=== PATIENT | male | born 1975 | race Caucasian/White ===

== ENCOUNTER 2019-08-14 15:56 | Emergency (ER) | payer OTHER ==
[~2019-08-14] VITALS: Ht 172.7 cm; Wt 72.6 kg
[2019-08-14 17:45] LABS: ABSOLUTE NEUTROPHILS 2.7 thou/uL (1.4-8.2); BASOPHILS 0.9 % (0.0-2.0); EOSINOPHILS 2.3 % (0.0-3.0); HEMATOCRIT 42.7 % (42.0-52.0); HEMOGLOBIN 14.1 gm/dL (14.0-18.0); LYMPHOCYTES 49.5 % (24.0-44.0); MCH 27.8 pg (26.0-34.0); MCHC 33.1 g/dL (28.0-37.0); MCV 83.9 fL (80.0-100.0); MONOCYTES 5.1 % (1.0-8.0); PLATELET COUNT 280 thou/uL (150-400); POLYS 42.2 % (36.0-66.0); RBC 5.09 mil/uL (4.50-6.00); RDW 14.7 % (10.5-14.5); WBC 6.3 thou/uL (4.0-11.0)
[2019-08-14 17:56] LABS: CALCIUM 8.3 mg/dL (8.5-10.1); POTASSIUM 3.4 mmol/L (3.5-5.1)
[2019-08-14 18:02] LABS: ALBUMIN 3.7 g/dL (3.4-5.0); TOTAL PROTEIN 6.6 g/dL (6.4-8.2)
[2019-08-14 18:35] LABS: URINE BILIRUBIN NEGATIVE (Negative); URINE BLOOD NEGATIVE (Negative); URINE CLARITY CLEAR; URINE COLOR YELLOW; URINE GLUCOSE-RANDOM* NEGATIVE (Negative); URINE KETONES NEGATIVE (Negative); URINE LEUKOCYTES-REFLEX NEGATIVE (Negative); URINE NITRITE-REFLEX NEGATIVE (Negative); URINE PROTEIN (DIPSTICK) NEGATIVE (Negative); URINE UROBILINOGEN 0.2 E.U./dl (0.2-1.0)
[2019-08-14] MEDS ORDERED: PEPCID20 MG PO (19:13)
[2019-08-14 19:38] VITALS: BP 108/73
[2019-08-15] MEDS ORDERED: PROTONIX40 M2 PO (13:01)
[2019-08-15] MEDS ORDERED: CARAFATE1 GM PO (13:01)
[2019-08-15] MEDS ORDERED: ZOFRAN ODT4 MG PO (13:01)
== END 2019-08-14 19:20 | disposition still patient (30) ==
LOC: ER 15:56
PROVIDERS: Emergency Medicine
DX: F10.129 Alcohol abuse with intoxication, unspecified (principal); I10 Essential (primary) hypertension; F17.210 Nicotine dependence, cigarettes, uncomplicated; Z90.49 Acquired absence of other specified parts of digestive tract; Y90.9 Presence of alcohol in blood, level not specified

== ENCOUNTER 2019-08-15 10:03 | Emergency (ER) | payer OTHER ==
[~2019-08-15] VITALS: Ht 172.7 cm; Wt 77.1 kg
--- NOTE | ~2019-08-15 | EMS ---
[place] [address] EMS Patient Care Report Name: TRENT GRAFF Room #: DEP [facility] [place]#: [id number] Admission: 08/15/19 Attend Phys: Discharge: 08/15/19 Date of : 79 Report #: [id number] THIS REPORT FOR: //name// Report Transmitted: 08/16/2019 07:56 EMS Care Summary [place], [place]/[facility] Incident [phone] @ 08/15/2019 09:36 Incident Location [address] [place] [address] Patient TRENT GRAFF Male, 44 Years 1975 Patient Address [address] [place] [address] Patient History Gastric Ulcer,Alcohol Abuse,Appendectomy, Patient Allergies Dairy product allergy,Demerol, Patient Medications Pantoprazole, Oxycodone, Adderall, Lorazepam, Chief Complaint ABD PAIN Disposition Transported No Lights/[place] Reason Abdominal Pain/Problems Transported To [facility] Narrative PT FOUND AMBULATORY. [facility] CANCELLED PRIOR TO THEIR ARRIVAL. PT STATES HIS STOMACH HURTS. PT STATES HE WAS DRINKING YESTERDAY. PT ADMITS TO HX OF GASTRIC ULCER. PT DENIES KNOWING IF HE HAS PANCREATITIS. PT ADMITS TO BEING AN ALCOHOLIC. PT DENIES OTHER COMPLAINTS. [place] [address] EMS Patient Care Report Name: TRENT GRAFF Room #: DEP ER [facility]#: [id number] Admission: 08/15/19 Attend Phys: Discharge: 08/15/19 Date of : 79 Report #: [id number] Initial Vitals @09:45P: 102,R: 18,BP: 142/94,Pain: 6/10,GCS: 15,Glucose: 74,SpO2: 97,Revised Trauma: 12, Assessments @09:45MENTAL:No Abnormalities,SKIN:No Abnormalities,HEENT:Head/Face: No Abnormalities,Eyes: No Abnormalities,Neck/Airway: No Abnormalities,LUNG SOUNDS:ABDOMEN:PELVIS//GI:EXTREMITIES:PULSE:NEURO:No Abnormalities, Impression Abdominal Pain Procedures @09:45ALS AssessmentResponse: UnchangedSucceeded Timeline 09:34,Call Received 09:34,Dispatch Notified 09:36,Dispatched 09:36,En Route 09:44,On Scene 09:45,At Patient 09:45,ALS Assessment,Response: UnchangedSucceeded, 09:45,BP: 142/94 M,PULSE: 102,RR: 18 R,SPO2: 97 Ox,ETCO2: ,B,PAIN: 6,GCS: 15, 09:48,Depart Scene 09:59,At Destination 10:23,Call Closed Disclaimer [email or web address] Copyright 2020 [employer] This EMS Care Summary contains data elements from the applicable legal record (which may be displayed differently). It is designed to provide pertinent information for the following purposes: continuity of care, clinical quality, and state data reporting. The complete legal record is available to ED staff and administrators of the receiving hospital in [facility]'s Patient Tracker. All data is provided "as is."
[~2019-08-15 10:03] MED LIST: PEPCID20 MG PO
[2019-08-15 10:52] LABS: ABSOLUTE NEUTROPHILS 2.2 thou/uL (1.4-8.2); EOSINOPHILS 2.3 % (0.0-3.0); HEMOGLOBIN 14.5 gm/dL (14.0-18.0); LYMPHOCYTES 42.6 % (24.0-44.0); MCHC 33.7 g/dL (28.0-37.0); MONOCYTES 4.5 % (1.0-8.0); PLATELET COUNT 297 thou/uL (150-400); POLYS 48.6 % (36.0-66.0); RBC 5.18 mil/uL (4.50-6.00); RDW 14.2 % (10.5-14.5); WBC 4.5 thou/uL (4.0-11.0)
[2019-08-15 10:53] LABS: CALCIUM 8.7 mg/dL (8.5-10.1); POTASSIUM 3.6 mmol/L (3.5-5.1)
[2019-08-15 10:59] LABS: ALBUMIN 3.9 g/dL (3.4-5.0); TOTAL BILIRUBIN 0.9 mg/dL (<0.1-1.0); TOTAL PROTEIN 6.8 g/dL (6.4-8.2)
[2019-08-15] MEDS ORDERED: ZOFRAN ODT4 MG PO (13:01)
[2019-08-15] MEDS ORDERED: CARAFATE1 GM PO (13:01)
[2019-08-15] MEDS ORDERED: PROTONIX40 M2 PO (13:01)
[2019-08-15 14:15] VITALS: BP 137/78
== END 2019-08-15 14:48 | disposition home or self-care (01) ==
LOC: ER 10:03
PROVIDERS: Emergency Medicine
DX: K29.20 Alcoholic gastritis without bleeding (principal); I10 Essential (primary) hypertension; F17.210 Nicotine dependence, cigarettes, uncomplicated; Z79.899 Other long term (current) drug therapy; Z88.8 Allergy status to other drugs, medicaments and biological substances